=== PATIENT | male | born 1945 | race Caucasian/White ===

== ENCOUNTER 2017-12-29 13:07 | Inpatient (IN) | payer MEDICARE, MEDICAID ==
[~2017-12-29] VITALS: Ht 180.3 cm; Wt 56.0 kg
[2017-12-29] MEDS ORDERED: ipratropium/albuterol 3ml nebule NEB ONE (13:50)
[2017-12-29 14:22] LABS: BASOPHILS % (AUTO) 0.2 % (0-1); EOSINOPHILS # (AUTO) 0.2 X10'3 (0-0.9); EOSINOPHILS % (AUTO) 1.7 % (0-6); HEMATOCRIT 48.4 % (42.0-52.0); HEMOGLOBIN 15.6 g/dl (14.0-17.9); LYMPHOCYTES # (AUTO) 1.6 X10'3 (1.1-4.8); LYMPHOCYTES % (AUTO) 10.7 % (21-51); MEAN CORPUSCULAR HEMOGLOBIN 27.2 PG (27.0-31.0); MEAN CORPUSCULAR HGB CONC 32.2 % (33.0-36.5); MEAN CORPUSCULAR VOLUME 84.5 FL (78-98); MEAN PLATELET VOLUME 8.3 FL (7.4-10.4); MONOCYTES # (AUTO) 0.5 X10'3 (0-0.9); MONOCYTES % (AUTO) 3.5 % (2-12); NEUTROPHILS # (AUTO) 12.3 X10'3 (1.8-7.7); NEUTROPHILS % (AUTO) 83.9 % (42-75); PLATELET COUNT 796 X10'3 (140-440); RED BLOOD COUNT 5.73 X10'6 (4.70-6.10); RED CELL DISTRIBUTION WIDTH 15.4 % (11.5-14.5); WHITE BLOOD COUNT 14.6 X10'3 (4.5-11.0)
[2017-12-29 14:32] LABS: INR 1.1 INR; PARTIAL THROMBOPLASTIN TIME 33 SECONDS (22-32); PROTHROMBIN TIME 11.2 SECONDS (9.0-12.0)
[2017-12-29 14:35] LABS: ALANINE AMINOTRANSFERASE 34 U/L (12-78); ALBUMIN 3.8 G/DL (3.4-5.0); ALBUMIN/GLOBULIN RATIO 0.7 (1.1-1.5); ALKALINE PHOSPHATASE 160 IU/L (46-116); ANION GAP 11 (8-16); ASPARTATE AMINO TRANSFERASE 26 U/L (10-37); BILIRUBIN,TOTAL 0.6 MG/DL (0.1-1.0); BLOOD UREA NITROGEN 11 MG/DL (7-18); BUN/CREATININE RATIO 10.9 (5.4-32.0); CALCIUM 9.9 MG/DL (8.5-10.1); CHLORIDE 97 MMOL/L (99-107); CREATININE 1.01 MG/DL (0.60-1.10); GLUCOSE 145 MG/DL (70-104); POTASSIUM 4.6 MMOL/L (3.5-5.1); SODIUM 136 MMOL/L (135-145); TOTAL CARBON DIOXIDE 28.1 MMOL/L (24-32); TOTAL PROTEIN 9.1 G/DL (6.4-8.2); eGFR 72 ML/MIN
[2017-12-29] MEDS ORDERED: normal saline 1000ML IV soln IVB ONE ×2 (14:55→15:45)
[2017-12-29] MEDS ORDERED: predniSONE 20 mg tablet PO ONE (15:30)
[2017-12-29] MEDS ORDERED: levoFLOXACIN 250mg tablet PO ONE (15:30)
[2017-12-29 16:08] LABS: D-DIMER 1.85 MG/L FEU (0-0.50)
[2017-12-29] MEDS ORDERED: docusate sod 100mg capsule PO PRN (16:15)
[2017-12-29] MEDS ORDERED: potassium Cl 40MEQ/NS 500ml 500 ML IV PRN ×2 (16:15)
[2017-12-29] MEDS ORDERED: magnesium 2GM in 50ml NS 50 ML IV PRN (16:15)
[2017-12-29] MEDS: normal saline 1000ml 1,000 ML IV SCH ×2 (16:15→21:43)
[2017-12-29] MEDS ORDERED: magnesium 4gm in 100ml NS 100 ML IV PRN (16:15)
[2017-12-29] MEDS ORDERED: morphine 4 MG/ML inj SYRINge IV PRN (16:15)
[2017-12-29] MEDS ORDERED: acetaminophen 325mg tablet PO PRN (16:15)
[2017-12-29] MEDS ORDERED: magnesium hydroxide 30ml (MOM) UD suspension PO PRN (16:15)
[2017-12-29] MEDS ORDERED: ondansetron/PF 4mg/2ml inj IV PRN (16:15)
[2017-12-29] MEDS ORDERED: potassium Cl 20 mEq SR tablet PO PRN ×2 (16:15)
[2017-12-29] MEDS ORDERED: iohexol 350MG/ML 100ml bottle IV ONE (17:30)
[2017-12-29] MEDS ORDERED: heparin 10,000 units/1 ML INJ IV ONE (18:35)
[2017-12-29] MEDS ORDERED: heparin 10,000 units/1 ML INJ IV PRN (18:35)
[2017-12-29] MEDS ORDERED: nitroGLYCERIN-Tridil 50MG/D5W 250 ML IV SCH (18:35)
[2017-12-29] MEDS ORDERED: LIDOcaine 1.5% w/epinephrine 1:200,000 5ml ampul IJ ONE (19:20)
[2017-12-29] MEDS ORDERED: fentaNYL/PF 50MCG/1 ML 2ML syringe IV ONE (19:20)
[2017-12-29] MEDS ORDERED: LORazepam 2 mg/ml vial IV ONE (19:30)
[2017-12-29 21:30] VITALS: BP 115/81
[2017-12-29] MEDS ORDERED: TRAM50TA2 (21:39)
[2017-12-29] MEDS ORDERED: CARI-1 (21:39)
[2017-12-29] MEDS: morphine 4 MG/ML inj SYRINge IV PRN (21:44)
[2017-12-29 23:00] VITALS: BP 134/73
[2017-12-30 01:44] LABS: ALANINE AMINOTRANSFERASE 31 U/L (12-78); ALBUMIN 2.8 G/DL (3.4-5.0); ALBUMIN/GLOBULIN RATIO 0.7 (1.1-1.5); ALKALINE PHOSPHATASE 114 IU/L (46-116); ANION GAP 9 (8-16); ASPARTATE AMINO TRANSFERASE 25 U/L (10-37); BILIRUBIN,TOTAL 0.5 MG/DL (0.1-1.0); BLOOD UREA NITROGEN 9 MG/DL (7-18); BUN/CREATININE RATIO 11.4 (5.4-32.0); CALCIUM 8.3 MG/DL (8.5-10.1); CHLORIDE 102 MMOL/L (99-107); CREATININE 0.79 MG/DL (0.60-1.10); GLUCOSE 122 MG/DL (70-104); POTASSIUM 4.3 MMOL/L (3.5-5.1); SODIUM 138 MMOL/L (135-145); TOTAL CARBON DIOXIDE 27.3 MMOL/L (24-32); TOTAL PROTEIN 6.9 G/DL (6.4-8.2); eGFR > 90 ML/MIN
[2017-12-30 01:46] LABS: HDL CHOLESTEROL 52 MG/DL (35-60); LDL CHOLESTEROL 115 MG/DL (50-100); MAGNESIUM 1.6 MG/DL (1.5-2.4); TRIGLYCERIDES 60 MG/DL (20-135)
[2017-12-30 01:54] LABS: CHOL/HDL RATIO 3.5 (0.00-4.99); CHOLESTEROL 180 MG/DL (0-200)
[2017-12-30 02:10] LABS: BASOPHILS % (AUTO) 0.2 % (0-1); EOSINOPHILS # (AUTO) 0.1 X10'3 (0-0.9); EOSINOPHILS % (AUTO) 0.7 % (0-6); HEMATOCRIT 39.4 % (42.0-52.0); LYMPHOCYTES % (AUTO) 7.2 % (21-51); MEAN CORPUSCULAR HEMOGLOBIN 27.8 PG (27.0-31.0); MEAN CORPUSCULAR VOLUME 84.1 FL (78-98); MEAN PLATELET VOLUME 8.6 FL (7.4-10.4); MONOCYTES # (AUTO) 0.6 X10'3 (0-0.9); MONOCYTES % (AUTO) 4.9 % (2-12); NEUTROPHILS # (AUTO) 11.4 X10'3 (1.8-7.7); PLATELET COUNT 614 X10'3 (140-440); RED BLOOD COUNT 4.68 X10'6 (4.70-6.10); WHITE BLOOD COUNT 13.2 X10'3 (4.5-11.0)
[2017-12-30] MEDS: morphine 4 MG/ML inj SYRINge IV PRN ×5 (02:54→23:08)
[2017-12-30 03:00] VITALS: BP 124/65
[2017-12-30 07:00] VITALS: BP 137/82
[2017-12-30] MEDS: K and/or MAG REPLACEMENT MC SCH (07:04)
[2017-12-30] MEDS: levoFLOXACIN-Levaquin 750MG/D5 150 ML IV SCH (07:55)
[2017-12-30] MEDS: methylPREDNISolone sod succ 125mg/2ml vial IV SCH ×3 (07:55→21:18)
[2017-12-30] MEDS ORDERED: enoxaparin 40mg/0.4ml syringe SQ SCH (08:00)
[2017-12-30] MEDS: heparin, porcine 5000 units/ml vial SQ SCH ×4 (08:00→23:20)
[2017-12-30 11:00] VITALS: BP 133/73
[2017-12-30] MEDS: normal saline 1000ml 1,000 ML IV SCH ×2 (12:34→19:16)
[2017-12-30 15:00] VITALS: BP 144/76
[2017-12-30 19:00] VITALS: BP 149/77
[2017-12-30] MEDS: lactobacillus rhamnosus 10,000 MMU CELLS/CAPSULE PO SCH (21:18)
[2017-12-30 23:00] VITALS: BP 131/86
[2017-12-31] MEDS: methylPREDNISolone sod succ 125mg/2ml vial IV SCH ×4 (02:59→19:33)
[2017-12-31] MEDS: morphine 4 MG/ML inj SYRINge IV PRN ×5 (02:59→21:19)
[2017-12-31 03:00] VITALS: BP 139/57
[2017-12-31 05:22] LABS: BASOPHILS # (AUTO) 0.1 X10'3 (0-0.2); EOSINOPHILS % (AUTO) 0.5 % (0-6); HEMATOCRIT 38.8 % (42.0-52.0); HEMOGLOBIN 12.8 g/dl (14.0-17.9); LYMPHOCYTES # (AUTO) 0.9 X10'3 (1.1-4.8); LYMPHOCYTES % (AUTO) 12.2 % (21-51); MEAN CORPUSCULAR HEMOGLOBIN 27.6 PG (27.0-31.0); MEAN CORPUSCULAR VOLUME 83.6 FL (78-98); MEAN PLATELET VOLUME 8.7 FL (7.4-10.4); MONOCYTES # (AUTO) 0.4 X10'3 (0-0.9); MONOCYTES % (AUTO) 4.9 % (2-12); NEUTROPHILS # (AUTO) 6.1 X10'3 (1.8-7.7); NEUTROPHILS % (AUTO) 81.4 % (42-75); PLATELET COUNT 539 X10'3 (140-440); RED BLOOD COUNT 4.64 X10'6 (4.70-6.10); WHITE BLOOD COUNT 7.5 X10'3 (4.5-11.0)
[2017-12-31 06:08] LABS: ALANINE AMINOTRANSFERASE 35 U/L (12-78); ALBUMIN 2.7 G/DL (3.4-5.0); ALBUMIN/GLOBULIN RATIO 0.7 (1.1-1.5); ALKALINE PHOSPHATASE 102 IU/L (46-116); ANION GAP 8 (8-16); ASPARTATE AMINO TRANSFERASE 33 U/L (10-37); BILIRUBIN,TOTAL 0.4 MG/DL (0.1-1.0); BLOOD UREA NITROGEN 11 MG/DL (7-18); BUN/CREATININE RATIO 14.9 (5.4-32.0); CALCIUM 8.9 MG/DL (8.5-10.1); CHLORIDE 102 MMOL/L (99-107); CREATININE 0.74 MG/DL (0.60-1.10); GLUCOSE 125 MG/DL (70-104); MAGNESIUM 1.7 MG/DL (1.5-2.4); POTASSIUM 3.9 MMOL/L (3.5-5.1); SODIUM 138 MMOL/L (135-145); TOTAL CARBON DIOXIDE 27.8 MMOL/L (24-32); TOTAL PROTEIN 6.6 G/DL (6.4-8.2); eGFR > 90 ML/MIN
[2017-12-31 07:00] VITALS: BP 122/55
[2017-12-31] MEDS: levoFLOXACIN-Levaquin 750MG/D5 150 ML IV SCH (07:20)
[2017-12-31] MEDS: lactobacillus rhamnosus 10,000 MMU CELLS/CAPSULE PO SCH ×2 (07:20→19:33)
[2017-12-31] MEDS: heparin, porcine 5000 units/ml vial SQ SCH ×2 (07:20→16:39)
[2017-12-31] MEDS: K and/or MAG REPLACEMENT MC SCH (08:00)
[2017-12-31] MEDS: normal saline 1000ml 1,000 ML IV SCH ×2 (08:20→20:00)
[2017-12-31] MEDS: ipratropium/albuterol 3ml nebule NEB PRN (09:08)
[2017-12-31 11:00] VITALS: BP 119/58
[2017-12-31 15:00] VITALS: BP 128/62
[2017-12-31 19:00] VITALS: BP 132/61
[2017-12-31 23:00] VITALS: BP 127/61
[2018-01-01] VITALS (16 sets, daily range): BP systolic 124–161; BP diastolic 47–80
[2018-01-01] MEDS: heparin, porcine 5000 units/ml vial SQ SCH ×3 (00:57→20:30)
[2018-01-01] MEDS: morphine 4 MG/ML inj SYRINge IV PRN ×3 (01:32→18:52)
[2018-01-01] MEDS: methylPREDNISolone sod succ 125mg/2ml vial IV SCH ×4 (01:32→19:50)
[2018-01-01] MEDS: normal saline 1000ml 1,000 ML IV SCH ×2 (04:15→18:26)
[2018-01-01 05:52] LABS: BASOPHILS % (AUTO) 0.3 % (0-1); EOSINOPHILS % (AUTO) 0.2 % (0-6); HEMATOCRIT 38.8 % (42.0-52.0); LYMPHOCYTES # (AUTO) 0.8 X10'3 (1.1-4.8); MEAN CORPUSCULAR HEMOGLOBIN 27.9 PG (27.0-31.0); MEAN CORPUSCULAR HGB CONC 33.6 % (33.0-36.5); MEAN CORPUSCULAR VOLUME 83.2 FL (78-98); MEAN PLATELET VOLUME 9.1 FL (7.4-10.4); MONOCYTES # (AUTO) 0.3 X10'3 (0-0.9); MONOCYTES % (AUTO) 2.3 % (2-12); NEUTROPHILS % (AUTO) 91.2 % (42-75); PLATELET COUNT 517 X10'3 (140-440); RED BLOOD COUNT 4.66 X10'6 (4.70-6.10); RED CELL DISTRIBUTION WIDTH 14.9 % (11.5-14.5); WHITE BLOOD COUNT 13.1 X10'3 (4.5-11.0)
[2018-01-01 06:18] LABS: ALANINE AMINOTRANSFERASE 54 U/L (12-78); ALBUMIN 2.7 G/DL (3.4-5.0); ALBUMIN/GLOBULIN RATIO 0.7 (1.1-1.5); ALKALINE PHOSPHATASE 95 IU/L (46-116); ANION GAP 6 (8-16); ASPARTATE AMINO TRANSFERASE 38 U/L (10-37); BILIRUBIN,TOTAL 0.4 MG/DL (0.1-1.0); BLOOD UREA NITROGEN 13 MG/DL (7-18); BUN/CREATININE RATIO 19.7 (5.4-32.0); CALCIUM 8.8 MG/DL (8.5-10.1); CHLORIDE 103 MMOL/L (99-107); CREATININE 0.66 MG/DL (0.60-1.10); GLUCOSE 114 MG/DL (70-104); MAGNESIUM 1.7 MG/DL (1.5-2.4); POTASSIUM 3.6 MMOL/L (3.5-5.1); SODIUM 139 MMOL/L (135-145); TOTAL CARBON DIOXIDE 29.8 MMOL/L (24-32); TOTAL PROTEIN 6.4 G/DL (6.4-8.2); eGFR > 90 ML/MIN
[2018-01-01] MEDS: ipratropium/albuterol 3ml nebule NEB PRN ×2 (07:00→11:09)
[2018-01-01] MEDS: lactobacillus rhamnosus 10,000 MMU CELLS/CAPSULE PO SCH ×2 (08:00→19:51)
[2018-01-01] MEDS: K and/or MAG REPLACEMENT MC SCH (08:00)
[2018-01-01] MEDS: levoFLOXACIN-Levaquin 750MG/D5 150 ML IV SCH (09:43)
[2018-01-01 10:07] LABS: INR 1.1 INR; PROTHROMBIN TIME 11.7 SECONDS (9.0-12.0)
[2018-01-01] MEDS ORDERED: ondansetron/PF 4mg/2ml inj ONE (13:37)
[2018-01-01] MEDS ORDERED: sevoflurane 250ml liquid IH ONE (13:37)
[2018-01-01] MEDS ORDERED: fentaNYL/PF 50MCG/1 ML 2ML syringe ONE (13:53)
[2018-01-01] MEDS ORDERED: midazolam 2 mg/2 ml injection ONE (13:53)
[2018-01-01] MEDS ORDERED: morphine sulfate /PF 0.5 MG/ML 10mL ampul ONE (14:23)
[2018-01-01] MEDS ORDERED: BUPIVAcaine/PF 2.5mg/ml (0.25%) 10ml vial ONE (14:29)
[2018-01-01] MEDS ORDERED: BUPIVAcaine/PF 2.5mg/ml (0.25%) 10ml vial IJ ONE (14:30)
[2018-01-01] MEDS ORDERED: metoprolol tartrate 1mg/ml inj IV ONE (14:42)
[2018-01-01] MEDS ORDERED: ringers solution, lacted 1,000 ML IV ONE (14:58)
[2018-01-01] MEDS ORDERED: ondansetron/PF 4mg/2ml inj IV PRN (15:00)
[2018-01-01] MEDS ORDERED: proMETHazine 25mg rectal suppository RC PRN (15:00)
[2018-01-01] MEDS ORDERED: HYDROmorphone inj. 0.5 MG/0.5 ML DISP.SYRIN IV PRN ×2 (15:00)
[2018-01-01] MEDS ORDERED: fentaNYL/PF 50MCG/1 ML 2ML syringe IV PRN (15:00)
[2018-01-01] MEDS ORDERED: hydrALAZINE 20mg/ml inj. IV PRN (15:00)
[2018-01-01] MEDS ORDERED: meperidine/PF 25mg/ml syringe IV PRN (15:00)
[2018-01-01] MEDS ORDERED: proCHLORperazine 10 MG/2 ml inj IV PRN (15:00)
[2018-01-01] MEDS ORDERED: labetalol 20mg/4ml (5mg/ml) syringe IV PRN (15:00)
[2018-01-01] MEDS ORDERED: dexamethasone sod phosphate 4mg/ml inj. ONE (15:14)
[2018-01-01] MEDS ORDERED: LIDOcaine 2% (20mg/ml) 5ml vial ONE (15:14)
[2018-01-01] MEDS ORDERED: rocuronium 10mg/ml inj IV ONE (15:14)
[2018-01-01] MEDS ORDERED: glycopyrrolate 0.2mg/ml inj ONE (15:14)
[2018-01-01] MEDS ORDERED: phenylephrine 10mg/ml inj IV ONE (15:14)
[2018-01-01] MEDS ORDERED: neostigmine methylsulfate 1 MG/ML 10ml vial ONE (15:14)
[2018-01-01] MEDS ORDERED: propofol inj 20 ML IV ONE (15:14)
[2018-01-01] MEDS: fentaNYL/PF 50MCG/1 ML 2ML syringe IV PRN ×4 (15:53→16:46)
[2018-01-01] MEDS ORDERED: ceFAZolin inj. 1,000 MG in dextrose 5%-water 50ml 50 ML IV SCH (16:00)
[2018-01-01 16:46] LABS: ABG BASE EXCESS 1.3 mmol/L (-2.0-3.0); ABG HCO3 27.3 mmol/L (22.0-26.0); ABG OXYGEN SATURATION 95.6 % (95-98); ABG PH (T) 7.364 (7.350-7.450); ABG PO2 (T) 83.7 mmHg (83-108); FCOHb 0.2 % (0.5-1.5); FLOW 3 L/min; FMetHb 0.3 % (0.3-1.12); FO2Hb 95.1 % (94-100); RESPIRATORY RATE (OBSERVED) 16 b/min; TOTAL HEMOGLOBIN 13.4 G/dl (14.0-18.0)
[2018-01-01] MEDS: ceFAZolin 1GM/D5W- ADD-VANTAGE 50 ML IV SCH (18:55)
[2018-01-01] MEDS: potassium CL 20mEq in D5-1/2NS 1,000 ML IV SCH ×2 (19:46→23:37)
[2018-01-01] MEDS: HYDROcodone/acetaminophen 10/325mg tab PO PRN (19:51)
[2018-01-02] VITALS (20 sets, daily range): BP systolic 103–149; BP diastolic 49–96
[2018-01-02] MEDS: normal saline 1000ml 1,000 ML IV SCH ×2 (00:15→10:15)
[2018-01-02] MEDS: ceFAZolin 1GM/D5W- ADD-VANTAGE 50 ML IV SCH ×2 (00:42→08:01)
[2018-01-02] MEDS: HYDROcodone/acetaminophen 10/325mg tab PO PRN ×6 (00:42→23:01)
[2018-01-02] MEDS: methylPREDNISolone sod succ 125mg/2ml vial IV SCH ×4 (02:43→20:20)
[2018-01-02 04:32] LABS: BASOPHILS % (AUTO) 0 % (0-1); EOSINOPHILS % (AUTO) 0 % (0-6); HEMOGLOBIN 11.6 g/dl (14.0-17.9); LYMPHOCYTES # (AUTO) 0.4 X10'3 (1.1-4.8); LYMPHOCYTES % (AUTO) 2.4 % (21-51); MEAN CORPUSCULAR HEMOGLOBIN 27.4 PG (27.0-31.0); MEAN CORPUSCULAR HGB CONC 32.2 % (33.0-36.5); MEAN CORPUSCULAR VOLUME 85.2 FL (78-98); MEAN PLATELET VOLUME 8.3 FL (7.4-10.4); NEUTROPHILS # (AUTO) 15.2 X10'3 (1.8-7.7); NEUTROPHILS % (AUTO) 91.6 % (42-75); PLATELET COUNT 463 X10'3 (140-440); RED BLOOD COUNT 4.23 X10'6 (4.70-6.10); WHITE BLOOD COUNT 16.6 X10'3 (4.5-11.0)
[2018-01-02 04:47] LABS: ALANINE AMINOTRANSFERASE 39 U/L (12-78); ALBUMIN 2.2 G/DL (3.4-5.0); ALBUMIN/GLOBULIN RATIO 0.7 (1.1-1.5); ALKALINE PHOSPHATASE 79 IU/L (46-116); ANION GAP 3 (8-16); ASPARTATE AMINO TRANSFERASE 25 U/L (10-37); BILIRUBIN,TOTAL 0.3 MG/DL (0.1-1.0); BLOOD UREA NITROGEN 9 MG/DL (7-18); BUN/CREATININE RATIO 14.1 (5.4-32.0); CALCIUM 7.8 MG/DL (8.5-10.1); CHLORIDE 102 MMOL/L (99-107); CREATININE 0.64 MG/DL (0.60-1.10); GLUCOSE 178 MG/DL (70-104); MAGNESIUM 1.7 MG/DL (1.5-2.4); POTASSIUM 3.8 MMOL/L (3.5-5.1); SODIUM 136 MMOL/L (135-145); TOTAL CARBON DIOXIDE 31.2 MMOL/L (24-32); TOTAL PROTEIN 5.2 G/DL (6.4-8.2); eGFR > 90 ML/MIN
[2018-01-02] MEDS: potassium CL 20mEq in D5-1/2NS 1,000 ML IV SCH (05:28)
[2018-01-02] MEDS: heparin, porcine 5000 units/ml vial SQ SCH ×4 (08:01→23:03)
[2018-01-02] MEDS: lactobacillus rhamnosus 10,000 MMU CELLS/CAPSULE PO SCH ×2 (08:01→20:20)
[2018-01-02] MEDS: K and/or MAG REPLACEMENT MC SCH (08:19)
[2018-01-02] MEDS: levoFLOXACIN-Levaquin 750MG/D5 150 ML IV SCH (08:52)
[2018-01-03 02:00] VITALS: BP 120/69
[2018-01-03] MEDS: methylPREDNISolone sod succ 125mg/2ml vial IV SCH ×4 (02:21→19:38)
[2018-01-03 05:34] LABS: BASOPHILS % (AUTO) 0.2 % (0-1); EOSINOPHILS # (AUTO) 0.1 X10'3 (0-0.9); EOSINOPHILS % (AUTO) 0.6 % (0-6); HEMATOCRIT 37.1 % (42.0-52.0); HEMOGLOBIN 12.5 g/dl (14.0-17.9); LYMPHOCYTES # (AUTO) 0.6 X10'3 (1.1-4.8); LYMPHOCYTES % (AUTO) 3.7 % (21-51); MEAN CORPUSCULAR HEMOGLOBIN 28.3 PG (27.0-31.0); MEAN CORPUSCULAR HGB CONC 33.7 % (33.0-36.5); MEAN CORPUSCULAR VOLUME 84.1 FL (78-98); MEAN PLATELET VOLUME 9.3 FL (7.4-10.4); MONOCYTES % (AUTO) 6.1 % (2-12); NEUTROPHILS # (AUTO) 14.9 X10'3 (1.8-7.7); NEUTROPHILS % (AUTO) 89.4 % (42-75); PLATELET COUNT 380 X10'3 (140-440); RED BLOOD COUNT 4.41 X10'6 (4.70-6.10); RED CELL DISTRIBUTION WIDTH 15.1 % (11.5-14.5); WHITE BLOOD COUNT 16.6 X10'3 (4.5-11.0)
[2018-01-03 05:45] LABS: ALANINE AMINOTRANSFERASE 45 U/L (12-78); ALBUMIN 2.3 G/DL (3.4-5.0); ALBUMIN/GLOBULIN RATIO 0.7 (1.1-1.5); ALKALINE PHOSPHATASE 80 IU/L (46-116); ANION GAP 4 (8-16); ASPARTATE AMINO TRANSFERASE 26 U/L (10-37); BILIRUBIN,TOTAL 0.6 MG/DL (0.1-1.0); BLOOD UREA NITROGEN 12 MG/DL (7-18); BUN/CREATININE RATIO 17.4 (5.4-32.0); CALCIUM 8.1 MG/DL (8.5-10.1); CHLORIDE 101 MMOL/L (99-107); CREATININE 0.69 MG/DL (0.60-1.10); GLUCOSE 113 MG/DL (70-104); MAGNESIUM 1.8 MG/DL (1.5-2.4); POTASSIUM 3.7 MMOL/L (3.5-5.1); SODIUM 137 MMOL/L (135-145); TOTAL CARBON DIOXIDE 32.5 MMOL/L (24-32); TOTAL PROTEIN 5.5 G/DL (6.4-8.2); eGFR > 90 ML/MIN
[2018-01-03 06:00] VITALS: BP 141/68
[2018-01-03] MEDS: HYDROcodone/acetaminophen 10/325mg tab PO PRN ×4 (07:22→19:38)
[2018-01-03] MEDS: lactobacillus rhamnosus 10,000 MMU CELLS/CAPSULE PO SCH ×2 (07:22→19:38)
[2018-01-03] MEDS: levoFLOXACIN-Levaquin 750MG/D5 150 ML IV SCH (07:22)
[2018-01-03] MEDS: heparin, porcine 5000 units/ml vial SQ SCH ×2 (07:32→15:29)
[2018-01-03] MEDS: K and/or MAG REPLACEMENT MC SCH (08:00)
[2018-01-03 11:00] VITALS: BP 110/71
[2018-01-03] MEDS ORDERED: mag hydrox/Alum hydrox/simeth 30ml oral suspension PO PRN (12:00)
[2018-01-03] MEDS: potassium CL 20mEq in D5-1/2NS 1,000 ML IV SCH (12:53)
[2018-01-03 15:00] VITALS: BP 156/71
[2018-01-03 18:00] VITALS: BP 116/71
[2018-01-03 22:00] VITALS: BP 146/76
[2018-01-04] MEDS: HYDROcodone/acetaminophen 10/325mg tab PO PRN ×5 (00:02→20:29)
[2018-01-04 02:00] VITALS: BP 160/72
[2018-01-04] MEDS: methylPREDNISolone sod succ 125mg/2ml vial IV SCH ×4 (02:06→19:44)
[2018-01-04 06:00] VITALS: BP 145/87
[2018-01-04] MEDS: lactobacillus rhamnosus 10,000 MMU CELLS/CAPSULE PO SCH ×2 (07:57→19:44)
[2018-01-04] MEDS: pantoprazole 40mg Tablet.DR PO SCH (07:58)
[2018-01-04] MEDS: K and/or MAG REPLACEMENT MC SCH (08:00)
[2018-01-04] MEDS: levoFLOXACIN-Levaquin 750MG/D5 150 ML IV SCH (08:01)
[2018-01-04] MEDS: enoxaparin 40mg/0.4ml syringe SUBCUT SCH (08:03)
[2018-01-04 11:00] VITALS: BP 139/76
[2018-01-04 15:00] VITALS: BP 121/78
[2018-01-04 18:00] VITALS: BP 143/72
[2018-01-04 22:00] VITALS: BP 149/82
[2018-01-05] MEDS: HYDROcodone/acetaminophen 10/325mg tab PO PRN ×6 (00:28→21:32)
[2018-01-05] MEDS: methylPREDNISolone sod succ 125mg/2ml vial IV SCH ×4 (01:44→20:18)
[2018-01-05 02:00] VITALS: BP 157/75
[2018-01-05 05:41] LABS: MAGNESIUM 1.7 MG/DL (1.5-2.4)
[2018-01-05 06:00] VITALS: BP 158/75
[2018-01-05 06:52] LABS: ALBUMIN 2.3 G/DL (3.4-5.0); ANION GAP 8 (8-16); BLOOD UREA NITROGEN 16 MG/DL (7-18); BUN/CREATININE RATIO 23.5 (5.4-32.0); CALCIUM 8.3 MG/DL (8.5-10.1); CHLORIDE 102 MMOL/L (99-107); CREATININE 0.68 MG/DL (0.60-1.10); GLUCOSE 113 MG/DL (70-104); POTASSIUM 3.9 MMOL/L (3.5-5.1); SODIUM 139 MMOL/L (135-145); TOTAL CARBON DIOXIDE 29.3 MMOL/L (24-32); eGFR > 90 ML/MIN
[2018-01-05] MEDS: lactobacillus rhamnosus 10,000 MMU CELLS/CAPSULE PO SCH ×2 (07:48→20:18)
[2018-01-05] MEDS: pantoprazole 40mg Tablet.DR PO SCH (07:48)
[2018-01-05] MEDS: enoxaparin 40mg/0.4ml syringe SUBCUT SCH (07:49)
[2018-01-05] MEDS: K and/or MAG REPLACEMENT MC SCH (08:00)
[2018-01-05] MEDS: levoFLOXACIN-Levaquin 750MG/D5 150 ML IV SCH (08:12)
[2018-01-05 09:00] LABS: BASOPHILS % (AUTO) 0.6 % (0-1); EOSINOPHILS # (AUTO) 0.1 X10'3 (0-0.9); EOSINOPHILS % (AUTO) 1.3 % (0-6); HEMOGLOBIN 12.6 g/dl (14.0-17.9); LYMPHOCYTES # (AUTO) 0.5 X10'3 (1.1-4.8); MEAN CORPUSCULAR HEMOGLOBIN 27.9 PG (27.0-31.0); MEAN CORPUSCULAR HGB CONC 33.2 % (33.0-36.5); MEAN PLATELET VOLUME 8.9 FL (7.4-10.4); MONOCYTES # (AUTO) 0.2 X10'3 (0-0.9); MONOCYTES % (AUTO) 2.8 % (2-12); NEUTROPHILS # (AUTO) 6.7 X10'3 (1.8-7.7); NEUTROPHILS % (AUTO) 88.3 % (42-75); PLATELET COUNT 355 X10'3 (140-440); RED BLOOD COUNT 4.52 X10'6 (4.70-6.10); RED CELL DISTRIBUTION WIDTH 14.5 % (11.5-14.5); WHITE BLOOD COUNT 7.6 X10'3 (4.5-11.0)
[2018-01-05 11:00] VITALS: BP 143/79
[2018-01-05 15:00] VITALS: BP 148/66
[2018-01-05 19:00] VITALS: BP 114/72
[2018-01-05 20:24] LABS: CLARITY,URINE CLEAR (Clear); COLOR,URINE YELLOW (Yellow); GLUCOSE, URINE NEGATIVE (Neg); KETONES,URINE NEGATIVE (Neg); LEUKOCYTE ESTERASE ,URINE NEGATIVE (Neg); NITRITES, URINE NEGATIVE (Neg); OCCULT BLOOD,URINE SMALL (Neg); PH,URINE 6.5 (4.8-8.0); PROTEIN,URINE NEGATIVE (Neg); UA COLLECTION TYPE CLN CATCH MIDSTREAM; UROBILINOGEN,URINE 0.2 E.U/dL (0.2-1.0)
[2018-01-05 20:30] LABS: BACTERIA,URINE NONE SEEN /HPF (Neg); MUCUS STRANDS NONE SEEN /LPF (Neg); RBC,URINE 0-2 /HPF (0-2); SQUAMOUS EPITHELIAL CELL,UR FEW /LPF (FEW); WBC,URINE 0-4 /HPF (0-4)
[2018-01-05 23:00] VITALS: BP 158/72
[2018-01-06] MEDS: HYDROcodone/acetaminophen 10/325mg tab PO PRN ×5 (01:43→21:08)
[2018-01-06] MEDS: methylPREDNISolone sod succ 125mg/2ml vial IV SCH ×4 (01:43→20:16)
[2018-01-06 03:00] VITALS: BP 142/73
[2018-01-06 05:41] LABS: BASOPHILS % (AUTO) 0 % (0-1); EOSINOPHILS # (AUTO) 0.1 X10'3 (0-0.9); HEMATOCRIT 36.4 % (42.0-52.0); LYMPHOCYTES # (AUTO) 0.5 X10'3 (1.1-4.8); LYMPHOCYTES % (AUTO) 4.4 % (21-51); MEAN CORPUSCULAR HEMOGLOBIN 27.8 PG (27.0-31.0); MEAN CORPUSCULAR HGB CONC 33.1 % (33.0-36.5); MEAN PLATELET VOLUME 9.1 FL (7.4-10.4); MONOCYTES # (AUTO) 0.3 X10'3 (0-0.9); NEUTROPHILS # (AUTO) 10.5 X10'3 (1.8-7.7); NEUTROPHILS % (AUTO) 91.6 % (42-75); PLATELET COUNT 360 X10'3 (140-440); RED BLOOD COUNT 4.33 X10'6 (4.70-6.10); RED CELL DISTRIBUTION WIDTH 14.9 % (11.5-14.5); WHITE BLOOD COUNT 11.5 X10'3 (4.5-11.0)
[2018-01-06 05:54] LABS: ALBUMIN 2.3 G/DL (3.4-5.0); ANION GAP 3 (8-16); BLOOD UREA NITROGEN 16 MG/DL (7-18); BUN/CREATININE RATIO 22.9 (5.4-32.0); CALCIUM 8.1 MG/DL (8.5-10.1); CHLORIDE 100 MMOL/L (99-107); GLUCOSE 117 MG/DL (70-104); POTASSIUM 3.6 MMOL/L (3.5-5.1); SODIUM 135 MMOL/L (135-145); TOTAL CARBON DIOXIDE 31.7 MMOL/L (24-32); eGFR > 90 ML/MIN
[2018-01-06 06:49] VITALS: BP 153/77
[2018-01-06] MEDS: lactobacillus rhamnosus 10,000 MMU CELLS/CAPSULE PO SCH ×2 (07:08→20:16)
[2018-01-06] MEDS: enoxaparin 40mg/0.4ml syringe SUBCUT SCH (07:09)
[2018-01-06] MEDS: pantoprazole 40mg Tablet.DR PO SCH (07:09)
[2018-01-06] MEDS: levoFLOXACIN-Levaquin 750MG/D5 150 ML IV SCH (07:10)
[2018-01-06] MEDS: K and/or MAG REPLACEMENT MC SCH (08:00)
[2018-01-06 11:00] VITALS: BP 129/72
[2018-01-06 15:00] VITALS: BP 145/68
[2018-01-06 19:00] VITALS: BP 134/69
[2018-01-06 23:00] VITALS: BP 159/83
[2018-01-07] MEDS: HYDROcodone/acetaminophen 10/325mg tab PO PRN ×6 (02:19→23:08)
[2018-01-07] MEDS: methylPREDNISolone sod succ 125mg/2ml vial IV SCH ×4 (02:19→19:41)
[2018-01-07 03:00] VITALS: BP 140/71
[2018-01-07 05:16] LABS: BASOPHILS % (AUTO) 0.2 % (0-1); EOSINOPHILS # (AUTO) 0.1 X10'3 (0-0.9); EOSINOPHILS % (AUTO) 1.3 % (0-6); HEMATOCRIT 36.8 % (42.0-52.0); HEMOGLOBIN 12.1 g/dl (14.0-17.9); LYMPHOCYTES # (AUTO) 0.5 X10'3 (1.1-4.8); MEAN CORPUSCULAR HEMOGLOBIN 27.5 PG (27.0-31.0); MEAN CORPUSCULAR HGB CONC 32.8 % (33.0-36.5); MEAN CORPUSCULAR VOLUME 83.9 FL (78-98); MONOCYTES # (AUTO) 0.4 X10'3 (0-0.9); MONOCYTES % (AUTO) 4.7 % (2-12); NEUTROPHILS # (AUTO) 7.9 X10'3 (1.8-7.7); NEUTROPHILS % (AUTO) 87.8 % (42-75); PLATELET COUNT 338 X10'3 (140-440); RED BLOOD COUNT 4.38 X10'6 (4.70-6.10); RED CELL DISTRIBUTION WIDTH 15.1 % (11.5-14.5)
[2018-01-07 05:24] LABS: ALBUMIN 2.2 G/DL (3.4-5.0); ANION GAP 2 (8-16); BLOOD UREA NITROGEN 17 MG/DL (7-18); BUN/CREATININE RATIO 23.9 (5.4-32.0); CALCIUM 8.2 MG/DL (8.5-10.1); CHLORIDE 102 MMOL/L (99-107); CREATININE 0.71 MG/DL (0.60-1.10); GLUCOSE 116 MG/DL (70-104); POTASSIUM 3.7 MMOL/L (3.5-5.1); SODIUM 138 MMOL/L (135-145); TOTAL CARBON DIOXIDE 33.6 MMOL/L (24-32); eGFR > 90 ML/MIN
[2018-01-07] MEDS: K and/or MAG REPLACEMENT MC SCH (06:29)
[2018-01-07 06:51] VITALS: BP 136/80
[2018-01-07] MEDS: pantoprazole 40mg Tablet.DR PO SCH (07:34)
[2018-01-07] MEDS: enoxaparin 40mg/0.4ml syringe SUBCUT SCH (07:34)
[2018-01-07] MEDS: levoFLOXACIN-Levaquin 750MG/D5 150 ML IV SCH (07:34)
[2018-01-07] MEDS: lactobacillus rhamnosus 10,000 MMU CELLS/CAPSULE PO SCH ×2 (07:34→19:41)
[2018-01-07 11:31] VITALS: BP 142/67
[2018-01-07 16:00] VITALS: BP 151/63
[2018-01-07 19:00] VITALS: BP 155/73
[2018-01-07 23:00] VITALS: BP 159/80
[2018-01-08] MEDS: methylPREDNISolone sod succ 125mg/2ml vial IV SCH ×4 (01:51→19:53)
[2018-01-08 03:00] VITALS: BP 158/65
[2018-01-08] MEDS: HYDROcodone/acetaminophen 10/325mg tab PO PRN ×5 (03:13→21:51)
[2018-01-08 06:30] VITALS: BP 149/76
[2018-01-08] MEDS: K and/or MAG REPLACEMENT MC SCH (08:00)
[2018-01-08] MEDS: pantoprazole 40mg Tablet.DR PO SCH (08:40)
[2018-01-08] MEDS: lactobacillus rhamnosus 10,000 MMU CELLS/CAPSULE PO SCH ×2 (08:40→19:53)
[2018-01-08] MEDS: enoxaparin 40mg/0.4ml syringe SUBCUT SCH (08:41)
[2018-01-08 11:00] VITALS: BP 155/60
[2018-01-08 15:00] VITALS: BP 150/72
[2018-01-08 19:00] VITALS: BP 151/59
[2018-01-08 23:00] VITALS: BP 150/79
[2018-01-09] MEDS: methylPREDNISolone sod succ 125mg/2ml vial IV SCH ×4 (01:44→20:44)
[2018-01-09] MEDS: MORPHINE 2MG in 2ml NS syringe IV PRN ×2 (01:52→13:50)
[2018-01-09 03:00] VITALS: BP 127/65
[2018-01-09 05:21] LABS: BASOPHILS % (AUTO) 0 % (0-1); EOSINOPHILS # (AUTO) 0.1 X10'3 (0-0.9); EOSINOPHILS % (AUTO) 0.9 % (0-6); HEMATOCRIT 40.2 % (42.0-52.0); HEMOGLOBIN 13.4 g/dl (14.0-17.9); LYMPHOCYTES # (AUTO) 0.6 X10'3 (1.1-4.8); LYMPHOCYTES % (AUTO) 5.3 % (21-51); MEAN CORPUSCULAR HEMOGLOBIN 27.9 PG (27.0-31.0); MEAN CORPUSCULAR HGB CONC 33.3 % (33.0-36.5); MEAN PLATELET VOLUME 8.3 FL (7.4-10.4); MONOCYTES # (AUTO) 0.4 X10'3 (0-0.9); MONOCYTES % (AUTO) 2.9 % (2-12); NEUTROPHILS % (AUTO) 90.9 % (42-75); PLATELET COUNT 363 X10'3 (140-440); RED BLOOD COUNT 4.78 X10'6 (4.70-6.10); RED CELL DISTRIBUTION WIDTH 15.4 % (11.5-14.5); WHITE BLOOD COUNT 12.1 X10'3 (4.5-11.0)
[2018-01-09 05:33] LABS: ALBUMIN 2.4 G/DL (3.4-5.0); ANION GAP 5 (8-16); BLOOD UREA NITROGEN 17 MG/DL (7-18); BUN/CREATININE RATIO 25.4 (5.4-32.0); CALCIUM 8.3 MG/DL (8.5-10.1); CHLORIDE 102 MMOL/L (99-107); CREATININE 0.67 MG/DL (0.60-1.10); GLUCOSE 103 MG/DL (70-104); SODIUM 139 MMOL/L (135-145); TOTAL CARBON DIOXIDE 32.5 MMOL/L (24-32); eGFR > 90 ML/MIN
[2018-01-09 06:30] VITALS: BP 138/69
[2018-01-09] MEDS: pantoprazole 40mg Tablet.DR PO SCH (07:54)
[2018-01-09] MEDS: lactobacillus rhamnosus 10,000 MMU CELLS/CAPSULE PO SCH ×2 (07:54→20:44)
[2018-01-09] MEDS: HYDROcodone/acetaminophen 10/325mg tab PO PRN ×4 (07:55→20:54)
[2018-01-09] MEDS: enoxaparin 40mg/0.4ml syringe SUBCUT SCH (07:57)
[2018-01-09] MEDS: K and/or MAG REPLACEMENT MC SCH (08:00)
[2018-01-09 11:00] VITALS: BP 119/71
[2018-01-09 15:00] VITALS: BP 127/68
[2018-01-09 19:00] VITALS: BP 105/63
[2018-01-09 23:00] VITALS: BP 131/75
[2018-01-10] MEDS: methylPREDNISolone sod succ 125mg/2ml vial IV SCH ×4 (02:05→19:30)
[2018-01-10] MEDS: HYDROcodone/acetaminophen 10/325mg tab PO PRN ×5 (02:13→19:30)
[2018-01-10 03:00] VITALS: BP 130/68
[2018-01-10 05:30] VITALS: BP 140/71
[2018-01-10] MEDS: enoxaparin 40mg/0.4ml syringe SUBCUT SCH (08:00)
[2018-01-10] MEDS: K and/or MAG REPLACEMENT MC SCH (08:00)
[2018-01-10] MEDS: lactobacillus rhamnosus 10,000 MMU CELLS/CAPSULE PO SCH ×2 (08:20→19:29)
[2018-01-10] MEDS: pantoprazole 40mg Tablet.DR PO SCH (08:20)
[2018-01-10 11:00] VITALS: BP 122/67
[2018-01-10] MEDS ORDERED: ADV50250 IH (13:55)
[2018-01-10] MEDS ORDERED: PRED10TA23 PO (13:55)
[2018-01-10] MEDS ORDERED: LEVO500T2 PO (13:55)
[2018-01-10] MEDS ORDERED: ALBU8.5H8 IH (13:55)
[2018-01-10 15:00] VITALS: BP 165/74
[2018-01-10 19:00] VITALS: BP 154/76
[2018-01-10 23:00] VITALS: BP 167/78
[2018-01-11] MEDS: HYDROcodone/acetaminophen 10/325mg tab PO PRN ×4 (00:20→13:26)
[2018-01-11] MEDS: methylPREDNISolone sod succ 125mg/2ml vial IV SCH ×3 (01:00→13:39)
[2018-01-11 03:00] VITALS: BP 147/93
[2018-01-11 06:00] VITALS: BP 137/68
[2018-01-11] MEDS: enoxaparin 40mg/0.4ml syringe SUBCUT SCH (08:00)
[2018-01-11] MEDS: K and/or MAG REPLACEMENT MC SCH (08:00)
[2018-01-11] MEDS: pantoprazole 40mg Tablet.DR PO SCH (08:02)
[2018-01-11] MEDS: lactobacillus rhamnosus 10,000 MMU CELLS/CAPSULE PO SCH (08:02)
[2018-01-11 11:00] VITALS: BP 119/68
== END 2018-01-11 13:50 | disposition home or self-care (01) | DRG 163 ==
LOC: ER 13:07 → UNDOADMIN 16:15 → ED HOLD 16:15 → PCU 3S 21:16 → CICU 2S 01-01 16:59 → PCU 3S 01-02 16:55
PROVIDERS: ADMIT Family Medicine; ATTEND Internal Medicine
PROC: B32T1ZZ Computerized Tomography (CT Scan) of Left Pulmonary Artery using Low Osmolar Contrast (ICD-10-PCS; 2017-12-29)
PROC: B3201ZZ Computerized Tomography (CT Scan) of Thoracic Aorta using Low Osmolar Contrast (ICD-10-PCS; 2017-12-29)
PROC: B32S1ZZ Computerized Tomography (CT Scan) of Right Pulmonary Artery using Low Osmolar Contrast (ICD-10-PCS; 2017-12-29)
PROC: 0B5P4ZZ Destruction of Left Pleura, Percutaneous Endoscopic Approach (ICD-10-PCS; 2018-01-01)
PROC: 0W9B30Z Drainage of Left Pleural Cavity with Drainage Device, Percutaneous Approach (ICD-10-PCS; 2018-01-01)
PROC: 0BNG4ZZ Release Left Upper Lung Lobe, Percutaneous Endoscopic Approach (ICD-10-PCS; principal; 2018-01-01 13:37)
PROC: 0BTG4ZZ Resection of Left Upper Lung Lobe, Percutaneous Endoscopic Approach (ICD-10-PCS; 2018-01-02)
DX: J93.83 Other pneumothorax (principal); J96.20 Acute and chronic respiratory failure, unspecified whether with hypoxia or hypercapnia; J94.2 Hemothorax; J43.9 Emphysema, unspecified; D72.829 Elevated white blood cell count, unspecified; G89.29 Other chronic pain; M54.9 Dorsalgia, unspecified; I10 Essential (primary) hypertension; Z99.81 Dependence on supplemental oxygen; Z87.891 Personal history of nicotine dependence; Z90.49 Acquired absence of other specified parts of digestive tract; Z82.3 Family history of stroke; Z82.49 Family history of ischemic heart disease and other diseases of the circulatory system; I25.2 Old myocardial infarction
CPT/HCPCS: 32551; 36415; 36600; 71045; 71250; 71275; 80048; 80053; 80061; 81001; 82803; 83605; 83735; 83880; 84100; 84145; 84484; 85018; 85025; 85379; 85610; 85730; 86885; 86900; 86901; 87070; 88307; 93005; 93306; 94640; 94760; 96360; 96361; 97110; 97116; 97161; 97530; 99285; A6212; A6213; A6223; A6224; A6257; A6258; A6402; A6449; A7000; A7048; C1758; C9250; J0690; J1100; J1644; J1650; J1956; J2001; J2060; J2175; J2250; J2270; J2274; J2370; J2405; J2704; J2710; J2930; J3010; J3490; J7030; J7060; J7120; J7512; Q9967

== ENCOUNTER 2019-07-23 17:39 | Inpatient (IN) | payer MEDICARE, MEDICAID ==
[~2019-07-23] VITALS: Ht 180.3 cm; Wt 55.1 kg
[~2019-07-23 17:39] MED LIST: ALBU8.5H8 IH; CARI-433 PO; TRAM50TA2 PO
[2019-07-23 18:37] LABS: BASOPHILS % (AUTO) 0.1 % (0-1); EOSINOPHILS % (AUTO) 0 % (0-6); HEMATOCRIT 39.7 % (42.0-52.0); HEMOGLOBIN 13.1 g/dl (14.0-17.9); LYMPHOCYTES # (AUTO) 1.3 X10'3 (1.1-4.8); MEAN CORPUSCULAR HEMOGLOBIN 27.3 PG (27.0-31.0); MEAN CORPUSCULAR VOLUME 82.8 FL (78-98); MEAN PLATELET VOLUME 8.2 FL (7.4-10.4); MONOCYTES # (AUTO) 3.1 X10'3 (0-0.9); MONOCYTES % (AUTO) 14.9 % (2-12); NEUTROPHILS # (AUTO) 16.6 X10'3 (1.8-7.7); PLATELET COUNT 502 X10'3 (140-440); RED BLOOD COUNT 4.79 X10'6 (4.70-6.10); RED CELL DISTRIBUTION WIDTH 14.9 % (11.5-14.5)
[2019-07-23] MEDS ORDERED: GABA-532 PO (18:38)
[2019-07-23 18:53] LABS: ALANINE AMINOTRANSFERASE 26 U/L (12-78); ALBUMIN 3.1 G/DL (3.4-5.0); ALBUMIN/GLOBULIN RATIO 0.7 (1.1-1.5); ALKALINE PHOSPHATASE 172 IU/L (46-116); ANION GAP 14 (8-16); ASPARTATE AMINO TRANSFERASE 26 U/L (10-37); BILIRUBIN,TOTAL 0.6 MG/DL (0.1-1.0); BLOOD UREA NITROGEN 10 MG/DL (7-18); BUN/CREATININE RATIO 9.3 (5.4-32.0); CALCIUM 9.2 MG/DL (8.5-10.1); CHLORIDE 91 MMOL/L (99-107); CREATININE 1.08 MG/DL (0.60-1.10); GLUCOSE 124 MG/DL (70-104); POTASSIUM 4.2 MMOL/L (3.5-5.1); SODIUM 131 MMOL/L (135-145); TOTAL CARBON DIOXIDE 26.1 MMOL/L (24-32); TOTAL PROTEIN 7.8 G/DL (6.4-8.2); eGFR 66 ML/MIN
[2019-07-23] MEDS ORDERED: CefTRIAXone 2gm/D5W 50ml 50 ML IV ONE (19:35)
[2019-07-23] MEDS ORDERED: normal saline 1000ML IV soln IV ONE (19:35)
[2019-07-23] MEDS ORDERED: ipratropium/albuterol 3ml nebule NEB ONE (19:35)
[2019-07-23 19:51] LABS: CLARITY,URINE CLEAR (Clear); COLOR,URINE AMBER (Yellow); GLUCOSE, URINE NEGATIVE (Neg); KETONES,URINE 40 mg/dl (Neg); LEUKOCYTE ESTERASE ,URINE NEGATIVE (Neg); NITRITES, URINE NEGATIVE (Neg); OCCULT BLOOD,URINE LARGE (Neg); PROTEIN,URINE 100 mg/dl (Neg)
[2019-07-23 19:53] LABS: UA COLLECTION TYPE CLN CATCH MIDSTREAM
[2019-07-23 19:59] LABS: BACTERIA,URINE FEW /HPF (Neg); MUCUS STRANDS FEW /LPF (Neg); SQUAMOUS EPITHELIAL CELL,UR FEW /LPF (FEW); TRANSITIONAL EPI CELLS,URINE FEW /HPF; WBC,URINE 0-4 /HPF (0-4)
[2019-07-23 20:00] LABS: FINE GRANULAR CAST 0-3 /LPF (NEGATIVE); HYALINE CASTS 0-3 /LPF (NEGATIVE); RENAL CELLS, URINE FEW /HPF
[2019-07-23] MEDS ORDERED: albuterol 2.5 MG/3 ML nebule NEB ONE (20:05)
[2019-07-23 20:47] LABS: BANDS% (MANUAL) 8 % (0-10); LYMPHOCYTES % (MANUAL) 8 % (21-51); MONOCYTES % (MANUAL) 14 % (2-12); NEUTROPHILS % (MANUAL) 73 % (42-75); PLATELET ESTIMATE INCREASED; REACTIVE LYMPHOCYTES % 2 % (0-0); TOTAL CELLS COUNTED 100
[2019-07-23] MEDS ORDERED: iohexol 300mg/ml 100ml inj. ONE (21:22)
[2019-07-23] MEDS ORDERED: acetaminophen 325mg tablet PO PRN ×2 (23:15)
[2019-07-23] MEDS ORDERED: HYDROcodone/acetaminophen 10/325mg tab PO PRN (23:15)
[2019-07-23] MEDS ORDERED: docusate sod 100mg capsule PO PRN (23:15)
[2019-07-23] MEDS ORDERED: magnesium Cl slow-release 64mg tablet PO PRN (23:15)
[2019-07-23] MEDS ORDERED: mag hydrox/Alum hydrox/simeth 30ml oral suspension PO PRN (23:15)
[2019-07-23] MEDS ORDERED: HYDROcodone/acetaminophen 5mg/325mg tablet PO PRN (23:15)
[2019-07-23] MEDS ORDERED: magnesium 2GM in 50ml NS 50 ML IV PRN (23:15)
[2019-07-23] MEDS ORDERED: magnesium 4gm in 100ml NS 100 ML IV PRN (23:15)
[2019-07-23] MEDS ORDERED: ondansetron/PF 4mg/2ml inj IV PRN (23:15)
[2019-07-23] MEDS ORDERED: potassium Cl 20 mEq SR tablet PO PRN ×2 (23:15)
[2019-07-23] MEDS ORDERED: ipratropium/albuterol 3ml nebule NEB PRN (23:15)
[2019-07-23] MEDS ORDERED: potassium CL 10mEq/100ml bag 100 ML IV PRN ×2 (23:15)
[2019-07-23] MEDS: methylPREDNISolone sod succ 125mg/2ml vial IV SCH (23:40)
[2019-07-23] MEDS: piperacillin/tazo 3.375gm/50ml 50 ML IV SCH (23:41)
[2019-07-23] MEDS: normal saline 1000ml 1,000 ML IV SCH (23:41)
[2019-07-23 23:51] LABS: ABG BASE EXCESS 0.1 mmol/L (-2.0-3.0); ABG HCO3 24.1 mmol/L (22.0-26.0); ABG OXYGEN SATURATION 96.2 % (95-98); ABG PCO2 (T) 36.3 mmHg (35.0-45.0); ABG PH (T) 7.438 (7.350-7.450); ABG PO2 (T) 78.5 mmHg (83-108); ALLEN'S TEST Positive; FCOHb 0.5 % (0.5-1.5); FLOW 2 L/min; FMetHb 0.2 % (0.3-1.12); FO2Hb 95.5 % (94-100); PATIENT TEMPERATURE 36.9; RESPIRATORY RATE (OBSERVED) 16 b/min; TOTAL HEMOGLOBIN 11.7 G/dl (14.0-17.9)
--- NOTE | 2019-07-24 00:45 | NUR ---
received report from charge nurse, Arelis (who received report from Giovanny in ER); pt arrived via gurney with belongings; family at bedside; oriented to surroundings, bed control & use of call light
[2019-07-24 01:00] VITALS: BP_SYST 118; BP_SYST 140; BP_SYST 148; BP_DIAS 66; BP_DIAS 71; BP_DIAS 74
--- NOTE | 2019-07-24 02:45 | NUR ---
Dr Saha here on unit; informed of orthostatic VS's & pt not taking norco for pain; states he's on routine meds & takes tramadol QID & not as ordered, Qhs; orders received...
[2019-07-24] MEDS ORDERED: traMADol 50MG tablet PO SCH ×3 (03:25→21:00)
[2019-07-24] MEDS: traMADol 50MG tablet PO SCH ×4 (03:41→21:25)
[2019-07-24 05:15] LABS: BASOPHILS % (AUTO) 0 % (0-1); EOSINOPHILS % (AUTO) 0 % (0-6); HEMATOCRIT 35.3 % (42.0-52.0); HEMOGLOBIN 11.8 g/dl (14.0-17.9); LYMPHOCYTES # (AUTO) 0.4 X10'3 (1.1-4.8); LYMPHOCYTES % (AUTO) 2.9 % (21-51); MEAN CORPUSCULAR HEMOGLOBIN 27.8 PG (27.0-31.0); MEAN CORPUSCULAR HGB CONC 33.3 g/dL (33.0-36.5); MEAN CORPUSCULAR VOLUME 83.5 FL (78-98); MEAN PLATELET VOLUME 8.3 FL (7.4-10.4); MONOCYTES # (AUTO) 0.5 X10'3 (0-0.9); MONOCYTES % (AUTO) 3.6 % (2-12); NEUTROPHILS # (AUTO) 12.6 X10'3 (1.8-7.7); NEUTROPHILS % (AUTO) 93.5 % (42-75); PLATELET COUNT 422 X10'3 (140-440); RED BLOOD COUNT 4.23 X10'6 (4.70-6.10); RED CELL DISTRIBUTION WIDTH 14.8 % (11.5-14.5); WHITE BLOOD COUNT 13.5 X10'3 (4.5-11.0)
[2019-07-24 05:23] LABS: ALANINE AMINOTRANSFERASE 26 U/L (12-78); ALBUMIN 2.6 G/DL (3.4-5.0); ALBUMIN/GLOBULIN RATIO 0.7 (1.1-1.5); ALKALINE PHOSPHATASE 153 IU/L (46-116); ANION GAP 6 (8-16); ASPARTATE AMINO TRANSFERASE 22 U/L (10-37); BILIRUBIN,TOTAL 0.3 MG/DL (0.1-1.0); BLOOD UREA NITROGEN 9 MG/DL (7-18); BUN/CREATININE RATIO 9.9 (5.4-32.0); CALCIUM 8.3 MG/DL (8.5-10.1); CHLORIDE 101 MMOL/L (99-107); CREATININE 0.91 MG/DL (0.60-1.10); GLUCOSE 213 MG/DL (70-104); MAGNESIUM 1.7 MG/DL (1.5-2.4); POTASSIUM 3.7 MMOL/L (3.5-5.1); SODIUM 136 MMOL/L (135-145); TOTAL PROTEIN 6.6 G/DL (6.4-8.2); eGFR 81 ML/MIN
[2019-07-24 07:00] VITALS: BP 119/67
--- NOTE | 2019-07-24 07:17 | NUR ---
Patient in room [facility]. I have received report from EDGARD PARSONS and had the opportunity to ask questions and assume patient care.
[2019-07-24] MEDS: K and/or MAG REPLACEMENT MC SCH ×2 (08:00→20:00)
[2019-07-24] MEDS: methylPREDNISolone sod succ 125mg/2ml vial IV SCH ×2 (08:49→16:54)
[2019-07-24] MEDS: enoxaparin 40mg/0.4ml syringe SQ SCH (08:49)
[2019-07-24] MEDS: normal saline 1000ml 1,000 ML IV SCH ×2 (10:12→19:00)
[2019-07-24] MEDS: piperacillin/tazo 3.375gm/50ml 50 ML IV SCH ×2 (10:15→16:55)
--- NOTE | 2019-07-24 16:21 | NUR ---
Initial: Pt admitted for sepsis and acute respiratory failure. Pt BMI is low, current documented scaled wt 55.1kg, in November last year pt documented scaled wt 56.8kg. Pt currently on a regular diet with no documented PO intake.Patient was seen at bedside by TAD, patient endorses a good appetite and reports that he ate all of his lunch except for a side dish, he is looking forward to dinner. Reports no chewing difficulties, weight is stable, and had no questions or concerns. Provided with written high protein education handout with verbal review. Will continue to follow. Recommend: 1. continue regular diet 2. encourage protein intake 3. wt per rx Addendum: 07/24/19 at [address] Amended: Links added.
[2019-07-24 16:30] VITALS: BP_SYST 138; BP_SYST 139; BP_SYST 143; BP_DIAS 72; BP_DIAS 79
--- NOTE | 2019-07-24 18:52 | NUR ---
Problems reprioritized. Patient report given, questions answered & plan of care reviewed with EDGARD MONIQUE.
[2019-07-24 20:00] VITALS: BP_SYST 158; BP_SYST 169; BP_DIAS 56; BP_DIAS 83; BP_DIAS 87
--- NOTE | 2019-07-24 20:20 | NUR ---
Patient ambulated with assist x1 using gait belt and FWW without his oxygen on. Patient did first lap and oxygen check was 93%. Patient did a total of 3 laps around nursing station. O2 check afterwards 92%, states he feels fine. He doesn't want to wear the oxygen. Patient currently on Room air. Will continue with care. Addendum: 07/25/19 at 0256 by Charley Dc RN Wrong patient.
[2019-07-24] MEDS: tamsulosin 0.4mg capsule PO SCH (21:00)
--- NOTE | 2019-07-24 21:00 | NUR ---
Patient refused Flomax that MD order for this evening. Patient stated he was having trouble urinating because there was a group of people in the room. But usually he pees fine. Patient states he does not have a problem urinating. Flomax not given tonight.
[2019-07-24] MEDS: lactobacillus rhamnosus 10,000 MMU CELLS/CAPSULE PO SCH (21:24)
[2019-07-24] MEDS: gabapentin 300mg capsule PO SCH (21:24)
[2019-07-25] VITALS: BP 134/69
[2019-07-25] MEDS: piperacillin/tazo 3.375gm/50ml 50 ML IV SCH ×3 (00:19→16:18)
[2019-07-25] MEDS: methylPREDNISolone sod succ 125mg/2ml vial IV SCH ×3 (00:19→16:18)
--- NOTE | 2019-07-25 03:30 | NUR ---
24hr tele discontinued. Patient has been in [facility].
[2019-07-25] MEDS: normal saline 1000ml 1,000 ML IV SCH ×2 (05:53→14:38)
[2019-07-25] MEDS: traMADol 50MG tablet PO SCH ×4 (06:28→21:40)
--- NOTE | 2019-07-25 06:31 | NUR ---
Patient in room [facility]. I have received report from EDGARD MONIQUE and had the opportunity to ask questions and assume patient care.
[2019-07-25 06:36] LABS: BASOPHILS % (AUTO) 0.1 % (0-1); EOSINOPHILS % (AUTO) 0 % (0-6); HEMATOCRIT 36.2 % (42.0-52.0); HEMOGLOBIN 11.9 g/dl (14.0-17.9); LYMPHOCYTES # (AUTO) 0.6 X10'3 (1.1-4.8); LYMPHOCYTES % (AUTO) 3.5 % (21-51); MEAN CORPUSCULAR HEMOGLOBIN 27.3 PG (27.0-31.0); MEAN CORPUSCULAR HGB CONC 32.7 g/dL (33.0-36.5); MEAN CORPUSCULAR VOLUME 83.6 FL (78-98); MEAN PLATELET VOLUME 8.2 FL (7.4-10.4); MONOCYTES % (AUTO) 5.3 % (2-12); NEUTROPHILS # (AUTO) 16.6 X10'3 (1.8-7.7); NEUTROPHILS % (AUTO) 91.1 % (42-75); PLATELET COUNT 497 X10'3 (140-440); RED BLOOD COUNT 4.33 X10'6 (4.70-6.10); RED CELL DISTRIBUTION WIDTH 15.1 % (11.5-14.5); WHITE BLOOD COUNT 18.2 X10'3 (4.5-11.0)
--- NOTE | 2019-07-25 06:42 | NUR ---
Problems reprioritized. Patient report given, questions answered & plan of care reviewed with Sherry RENE.
[2019-07-25 06:50] LABS: ALANINE AMINOTRANSFERASE 35 U/L (12-78); ALBUMIN 2.7 G/DL (3.4-5.0); ALBUMIN/GLOBULIN RATIO 0.7 (1.1-1.5); ALKALINE PHOSPHATASE 145 IU/L (46-116); ANION GAP 6 (8-16); ASPARTATE AMINO TRANSFERASE 36 U/L (10-37); BILIRUBIN,TOTAL 0.2 MG/DL (0.1-1.0); BLOOD UREA NITROGEN 7 MG/DL (7-18); BUN/CREATININE RATIO 9.6 (5.4-32.0); CALCIUM 8.5 MG/DL (8.5-10.1); CHLORIDE 104 MMOL/L (99-107); CREATININE 0.73 MG/DL (0.60-1.10); GLUCOSE 123 MG/DL (70-104); MAGNESIUM 1.8 MG/DL (1.5-2.4); POTASSIUM 3.7 MMOL/L (3.5-5.1); SODIUM 140 MMOL/L (135-145); TOTAL CARBON DIOXIDE 30.5 MMOL/L (24-32); TOTAL PROTEIN 6.6 G/DL (6.4-8.2); eGFR > 90 ML/MIN
[2019-07-25 07:00] VITALS: BP 162/63
[2019-07-25] MEDS: lactobacillus rhamnosus 10,000 MMU CELLS/CAPSULE PO SCH ×2 (07:37→21:40)
[2019-07-25] MEDS: enoxaparin 40mg/0.4ml syringe SQ SCH (07:38)
[2019-07-25] MEDS: K and/or MAG REPLACEMENT MC SCH ×2 (07:38→20:00)
[2019-07-25 11:00] VITALS: BP 155/86
--- NOTE | 2019-07-25 18:15 | NUR ---
Problems reprioritized. Patient report given, questions answered & plan of care reviewed with EDGARD MONIQUE.
[2019-07-25 20:00] VITALS: BP_SYST 153; BP_SYST 154; BP_SYST 166; BP_SYST 173; BP_DIAS 82; BP_DIAS 87; BP_DIAS 89; BP_DIAS 94
[2019-07-25] MEDS: tamsulosin 0.4mg capsule PO SCH (21:00)
[2019-07-25] MEDS: gabapentin 300mg capsule PO SCH (21:40)
[2019-07-25] MEDS ORDERED: aspirin/acetaminophen/caffeine tablet PO PRN (23:50)
[2019-07-26] VITALS: BP 140/78
[2019-07-26] MEDS: normal saline 1000ml 1,000 ML IV SCH ×2 (00:26→11:13)
[2019-07-26] MEDS: piperacillin/tazo 3.375gm/50ml 50 ML IV SCH ×2 (00:27→08:54)
[2019-07-26] MEDS: methylPREDNISolone sod succ 125mg/2ml vial IV SCH ×2 (00:27→08:49)
[2019-07-26] MEDS: traMADol 50MG tablet PO SCH ×2 (05:27→12:37)
[2019-07-26 06:33] LABS: EOSINOPHILS % (AUTO) 0 % (0-6); HEMATOCRIT 37.1 % (42.0-52.0); HEMOGLOBIN 12.4 g/dl (14.0-17.9); LYMPHOCYTES # (AUTO) 0.8 X10'3 (1.1-4.8); LYMPHOCYTES % (AUTO) 4.8 % (21-51); MONOCYTES # (AUTO) 0.8 X10'3 (0-0.9); RED BLOOD COUNT 4.52 X10'6 (4.70-6.10)
[2019-07-26 06:37] LABS: BASOPHILS % (AUTO) 0.2 % (0-1); MEAN CORPUSCULAR HEMOGLOBIN 27.4 PG (27.0-31.0); MEAN CORPUSCULAR HGB CONC 33.4 g/dL (33.0-36.5); MEAN CORPUSCULAR VOLUME 82.2 FL (78-98); NEUTROPHILS # (AUTO) 14.4 X10'3 (1.8-7.7); PLATELET COUNT 612 X10'3 (140-440); RED CELL DISTRIBUTION WIDTH 14.8 % (11.5-14.5); WHITE BLOOD COUNT 15.9 X10'3 (4.5-11.0)
--- NOTE | 2019-07-26 06:57 | NUR ---
Problems reprioritized. Patient report given, questions answered & plan of care reviewed with Gisela RENE.
[2019-07-26 07:04] LABS: ALANINE AMINOTRANSFERASE 47 U/L (12-78); ALBUMIN 2.7 G/DL (3.4-5.0); ALBUMIN/GLOBULIN RATIO 0.7 (1.1-1.5); ALKALINE PHOSPHATASE 124 IU/L (46-116); ANION GAP 4 (8-16); ASPARTATE AMINO TRANSFERASE 38 U/L (10-37); BILIRUBIN,TOTAL 0.2 MG/DL (0.1-1.0); BLOOD UREA NITROGEN 11 MG/DL (7-18); BUN/CREATININE RATIO 14.1 (5.4-32.0); CALCIUM 8.5 MG/DL (8.5-10.1); CHLORIDE 103 MMOL/L (99-107); CREATININE 0.78 MG/DL (0.60-1.10); GLUCOSE 102 MG/DL (70-104); MAGNESIUM 1.8 MG/DL (1.5-2.4); POTASSIUM 3.4 MMOL/L (3.5-5.1); SODIUM 140 MMOL/L (135-145); TOTAL CARBON DIOXIDE 33.4 MMOL/L (24-32); TOTAL PROTEIN 6.6 G/DL (6.4-8.2); eGFR > 90 ML/MIN
[2019-07-26 07:12] LABS: ANISOCYTOSIS 1+; MICROCYTOSIS 1+; PLATELET ESTIMATE INCREASED; TOTAL CELLS COUNTED 100
[2019-07-26 07:34] VITALS: BP 156/98
[2019-07-26] MEDS: K and/or MAG REPLACEMENT MC SCH (08:00)
[2019-07-26] MEDS: enoxaparin 40mg/0.4ml syringe SQ SCH (08:00)
[2019-07-26] MEDS: lactobacillus rhamnosus 10,000 MMU CELLS/CAPSULE PO SCH (08:48)
[2019-07-26] MEDS ORDERED: AMOX-419 PO (10:19)
[2019-07-26] MEDS ORDERED: LISI2.5T2 PO (10:19)
[2019-07-26 11:00] VITALS: BP_SYST 149; BP_SYST 153; BP_SYST 156; BP_DIAS 80; BP_DIAS 92; BP_DIAS 94
--- NOTE | 2019-07-26 13:04 | NUR ---
Patient discharged home with family member. stable and appropriate. all belongings taken from room. IV removed. New prescriptions transmitted to preferred pharmacy. Discharge instructions reviewed with patient and family member, all questions answered.
== END 2019-07-26 13:13 | disposition home or self-care (01) | DRG 871 ==
LOC: ER 17:40 → ED HOLD 23:13 → SUR 3N 07-24 00:45
PROVIDERS: ADMIT Family Medicine; ATTEND Internal Medicine
PROC: B32T1ZZ Computerized Tomography (CT Scan) of Left Pulmonary Artery using Low Osmolar Contrast (ICD-10-PCS; principal; 2019-07-23)
PROC: B32S1ZZ Computerized Tomography (CT Scan) of Right Pulmonary Artery using Low Osmolar Contrast (ICD-10-PCS; 2019-07-23)
DX: A41.9 Sepsis, unspecified organism (principal); J18.9 Pneumonia, unspecified organism; J96.00 Acute respiratory failure, unspecified whether with hypoxia or hypercapnia; J44.1 Chronic obstructive pulmonary disease with (acute) exacerbation; E87.1 Hypo-osmolality and hyponatremia; J44.0 Chronic obstructive pulmonary disease with (acute) lower respiratory infection; K44.9 Diaphragmatic hernia without obstruction or gangrene; I10 Essential (primary) hypertension; G89.29 Other chronic pain; I25.2 Old myocardial infarction; Z86.73 Personal history of transient ischemic attack (TIA), and cerebral infarction without residual deficits; Z87.891 Personal history of nicotine dependence; Z82.3 Family history of stroke; Z95.1 Presence of aortocoronary bypass graft; Z99.81 Dependence on supplemental oxygen
CPT/HCPCS: 36415; 36600; 71046; 71260; 80053; 81001; 82803; 83605; 83735; 84145; 84153; 85018; 85025; 87040; 87070; 87077; 87081; 87186; 87502; 87503; 92508; 92616; 94640; 94760; 96365; 97110; 97116; 97161; 97530; 99285; G0378; J0696; J1650; J2543; J2930; J7030; Q9967

== ENCOUNTER 2020-01-04 15:10 | Emergency (ER) | payer MEDICARE, MEDICAID ==
[~2020-01-04] VITALS: Ht 180.3 cm; Wt 59.1 kg
[~2020-01-04 15:10] MED LIST changes: -ALBU8.5H8 IH; +GABA-532 PO; +LISI2.5T2 PO
[2020-01-04 16:45] LABS: BASOPHILS % (AUTO) 0.5 % (0-1); EOSINOPHILS # (AUTO) 0.1 X10'3 (0-0.9); EOSINOPHILS % (AUTO) 0.9 % (0-6); HEMATOCRIT 38.7 % (42.0-52.0); HEMOGLOBIN 12.9 g/dl (14.0-17.9); LYMPHOCYTES # (AUTO) 1.6 X10'3 (1.1-4.8); LYMPHOCYTES % (AUTO) 16.2 % (21-51); MEAN CORPUSCULAR HEMOGLOBIN 27.6 PG (27.0-31.0); MEAN CORPUSCULAR HGB CONC 33.3 g/dL (33.0-36.5); MEAN CORPUSCULAR VOLUME 82.8 FL (78-98); MEAN PLATELET VOLUME 8.6 FL (7.4-10.4); MONOCYTES # (AUTO) 1.5 X10'3 (0-0.9); MONOCYTES % (AUTO) 15.5 % (2-12); NEUTROPHILS # (AUTO) 6.5 X10'3 (1.8-7.7); NEUTROPHILS % (AUTO) 66.9 % (42-75); PLATELET COUNT 318 X10'3 (140-440); RED BLOOD COUNT 4.67 X10'6 (4.70-6.10); RED CELL DISTRIBUTION WIDTH 14.6 % (11.5-14.5); WHITE BLOOD COUNT 9.7 X10'3 (4.5-11.0)
[2020-01-04 16:53] VITALS: BP 165/86
--- NOTE | 2020-01-04 16:53 | NUR ---
Patient resting comfortably in bed with family at bedside. Patient updated on POC.
[2020-01-04 16:54] LABS: D-DIMER 0.88 MG/L FEU (0-0.50); PARTIAL THROMBOPLASTIN TIME 33 SECONDS (22-32)
[2020-01-04 16:55] LABS: ALANINE AMINOTRANSFERASE 15 U/L (12-78); ALBUMIN 3.2 G/DL (3.4-5.0); ALBUMIN/GLOBULIN RATIO 0.9 (1.1-1.5); ALKALINE PHOSPHATASE 83 IU/L (46-116); ANION GAP 3 (8-16); ASPARTATE AMINO TRANSFERASE 22 U/L (10-37); BILIRUBIN,TOTAL 0.3 MG/DL (0.1-1.0); BLOOD UREA NITROGEN 11 MG/DL (7-18); BUN/CREATININE RATIO 12.4 (5.4-32.0); CALCIUM 8.5 MG/DL (8.5-10.1); CHLORIDE 100 MMOL/L (99-107); CREATININE 0.89 MG/DL (0.60-1.10); GLUCOSE 94 MG/DL (70-104); POTASSIUM 3.2 MMOL/L (3.5-5.1); SODIUM 136 MMOL/L (135-145); TOTAL CARBON DIOXIDE 32.7 MMOL/L (24-32); TOTAL PROTEIN 6.9 G/DL (6.4-8.2); eGFR 83 ML/MIN
[2020-01-04 17:01] LABS: TOTAL CELLS COUNTED 100
[2020-01-04 17:02] LABS: MAGNESIUM 1.8 MG/DL (1.5-2.4); PHOSPHORUS 2.5 MG/DL (2.3-4.5)
[2020-01-04 17:04] LABS: PLATELET ESTIMATE NORMAL
[2020-01-04 17:05] LABS: LARGE PLATELETS FEW; STOMATOCYTES 1+
== END 2020-01-04 18:05 | disposition home or self-care (01) ==
LOC: ER 15:11
DX: M25.462 Effusion, left knee (principal); M25.562 Pain in left knee; M79.89 Other specified soft tissue disorders; I10 Essential (primary) hypertension; I25.2 Old myocardial infarction; J44.9 Chronic obstructive pulmonary disease, unspecified; G89.29 Other chronic pain; F17.200 Nicotine dependence, unspecified, uncomplicated; Z79.899 Other long term (current) drug therapy
CPT/HCPCS: 73564; 80053; 83735; 83880; 84100; 85025; 85379; 85610; 85730; 93971; 99284

== ENCOUNTER 2020-08-09 13:39 | Emergency (ER) | payer MEDICARE, MEDICAID ==
[~2020-08-09] VITALS: Ht 177.8 cm; Wt 52.3 kg
[2020-08-09] MEDS ORDERED: aspirin 81mg tab.chew PO ONE (13:45)
[2020-08-09] MEDS ORDERED: nitroGLYCERIN 0.4mg SUBLingual tab SL PRN (13:45)
[2020-08-09 14:59] LABS: BASOPHILS # (AUTO) 0.1 X10'3 (0-0.2); BASOPHILS % (AUTO) 0.8 % (0-1); EOSINOPHILS # (AUTO) 0.3 X10'3 (0-0.9); EOSINOPHILS % (AUTO) 3.6 % (0-6); HEMATOCRIT 41.8 % (42.0-52.0); HEMOGLOBIN 13.5 g/dl (14.0-17.9); LYMPHOCYTES # (AUTO) 2.1 X10'3 (1.1-4.8); LYMPHOCYTES % (AUTO) 25.7 % (21-51); MEAN CORPUSCULAR HEMOGLOBIN 26.5 PG (27.0-31.0); MEAN CORPUSCULAR HGB CONC 32.3 g/dL (33.0-36.5); MEAN CORPUSCULAR VOLUME 82.1 FL (78-98); MONOCYTES # (AUTO) 0.8 X10'3 (0-0.9); NEUTROPHILS # (AUTO) 4.8 X10'3 (1.8-7.7); NEUTROPHILS % (AUTO) 59.9 % (42-75); PLATELET COUNT 348 X10'3 (140-440); RED BLOOD COUNT 5.09 X10'6 (4.70-6.10); RED CELL DISTRIBUTION WIDTH 15.2 % (11.5-14.5); WHITE BLOOD COUNT 8.1 X10'3 (4.5-11.0)
[2020-08-09 15:12] LABS: ALANINE AMINOTRANSFERASE 16 U/L (12-78); ALBUMIN 3.6 G/DL (3.4-5.0); ALKALINE PHOSPHATASE 74 IU/L (46-116); ANION GAP 8 (8-16); ASPARTATE AMINO TRANSFERASE 26 U/L (10-37); BILIRUBIN,TOTAL 0.5 MG/DL (0.1-1.0); BLOOD UREA NITROGEN 8 MG/DL (7-18); BUN/CREATININE RATIO 8.6 (5.4-32.0); CALCIUM 8.7 MG/DL (8.5-10.1); CHLORIDE 99 MMOL/L (99-107); CREATININE 0.93 MG/DL (0.60-1.10); GLUCOSE 86 MG/DL (70-104); POTASSIUM 3.5 MMOL/L (3.5-5.1); SODIUM 136 MMOL/L (135-145); TOTAL CARBON DIOXIDE 28.6 MMOL/L (24-32); TOTAL PROTEIN 7.3 G/DL (6.4-8.2); eGFR 79 ML/MIN
[2020-08-09 15:19] LABS: MAGNESIUM 1.8 MG/DL (1.5-2.4)
--- NOTE | 2020-08-09 15:27 | NUR ---
Arianna clinton in EDM - 08/09/20 at [email or web address] Chicas at bedside to discuss the risks and benefits to the patients daughter for interventional radiology.
[2020-08-09 15:39] LABS: D-DIMER 0.66 MG/L FEU (0-0.50)
--- NOTE | 2020-08-09 16:19 | NUR ---
Pt updated with plan of care and is awaiting the 3 hour trop results.
[2020-08-09] MEDS ORDERED: HYDROcodone/acetaminophen 5mg/325mg tablet PO ONE (16:25)
--- NOTE | 2020-08-09 17:29 | NUR ---
3 hour troponin drawn and sent to lab. Pt updated with plan of care.
[2020-08-09 17:51] VITALS: BP 146/99
== END 2020-08-09 18:12 | disposition home or self-care (01) ==
LOC: ER 13:40
DX: R07.89 Other chest pain (principal); I21.9 Acute myocardial infarction, unspecified; R19.7 Diarrhea, unspecified; I10 Essential (primary) hypertension; J44.9 Chronic obstructive pulmonary disease, unspecified; Z95.1 Presence of aortocoronary bypass graft
CPT/HCPCS: 36415; 71045; 80053; 83735; 83880; 84484; 85025; 85379; 93005; 99285

== ENCOUNTER 2022-01-16 06:23 | Day surgery (SDC) | payer MEDICARE, MEDICAID ==
[2022-01-16] VITALS (9 sets, daily range): BP systolic 111–165; BP diastolic 57–80
[~2022-01-16] VITALS: Ht 180.3 cm; Wt 46.4 kg
[~2022-01-16 06:23] MED LIST changes: +ALBU18HF2; +FLUT1AER; -LISI2.5T2 PO; +TRAZ-251 PO
[2022-01-16] MEDS ORDERED: TRAZ-251 PO (07:05)
[2022-01-16] MEDS ORDERED: TIZA4TAB11 PO (07:05)
[2022-01-16] MEDS ORDERED: diphenhydrAMINE 25mg capsule PO PRN (07:05)
[2022-01-16] MEDS ORDERED: normal saline 1,000 ML IV SCH (07:05)
[2022-01-16] MEDS ORDERED: ESOM20CA PO (07:10)
[2022-01-16] MEDS ORDERED: MULT-1172 (07:10)
[2022-01-16] MEDS ORDERED: [UNRECOGNIZED DRUG - OTHER] (07:10)
[2022-01-16] MEDS ORDERED: ATOR40TA PO (07:10)
[2022-01-16 08:22] LABS: ALBUMIN 3.3 G/DL (3.4-5.0); ANION GAP 9 (8-16); BLOOD UREA NITROGEN 11 MG/DL (7-18); BUN/CREATININE RATIO 12.9 (5.4-32.0); CALCIUM 9.1 MG/DL (8.5-10.1); CHLORIDE 103 MMOL/L (99-107); CREATININE 0.85 MG/DL (0.60-1.10); GLUCOSE 86 MG/DL (70-104); MAGNESIUM 1.7 MG/DL (1.5-2.4); POTASSIUM 4.2 MMOL/L (3.5-5.1); SODIUM 138 MMOL/L (135-145); TOTAL CARBON DIOXIDE 26.1 MMOL/L (24-32); eGFR 87 ML/MIN
[2022-01-16 08:26] LABS: BASOPHILS % (AUTO) 0.4 % (0-1); EOSINOPHILS # (AUTO) 0.2 X10'3 (0-0.9); EOSINOPHILS % (AUTO) 2.1 % (0-6); HEMATOCRIT 38.8 % (42.0-52.0); HEMOGLOBIN 12.6 g/dl (14.0-17.9); LYMPHOCYTES # (AUTO) 1.3 X10'3 (1.1-4.8); LYMPHOCYTES % (AUTO) 14.7 % (21-51); MEAN CORPUSCULAR HEMOGLOBIN 25.8 PG (27.0-31.0); MEAN CORPUSCULAR HGB CONC 32.4 g/dL (33.0-36.5); MEAN CORPUSCULAR VOLUME 79.6 FL (78-98); MEAN PLATELET VOLUME 8.4 FL (7.4-10.4); MONOCYTES # (AUTO) 0.8 X10'3 (0-0.9); NEUTROPHILS # (AUTO) 6.4 X10'3 (1.8-7.7); NEUTROPHILS % (AUTO) 73.8 % (42-75); PLATELET COUNT 337 X10'3 (140-440); RED BLOOD COUNT 4.88 X10'6 (4.70-6.10); WHITE BLOOD COUNT 8.7 X10'3 (4.5-11.0)
[2022-01-16] MEDS ORDERED: verapamil 2.5 mg/ml inj IV ONE (09:03)
[2022-01-16] MEDS ORDERED: midazolam 1 mg/ML 2ml injection ONE ×3 (09:03→09:39)
[2022-01-16] MEDS ORDERED: heparin 1,000unit/ml 10ml vial 10 ML ONE (09:03)
[2022-01-16] MEDS ORDERED: IOHEXOL 350 MG/ML INFUS..BTL 125ML IV ONE ×2 (09:03→11:00)
[2022-01-16] MEDS ORDERED: fentaNYL/PF 50MCG/1 ML 2ML syringe ONE ×2 (09:03→09:39)
[2022-01-16] MEDS ORDERED: LIDOcaine 1% 30ml preserv. free vial ONE (09:03)
[2022-01-16] MEDS ORDERED: nitroGLYCERIN-Tridil 50MG/D5W 250 ML IV ONE (09:03)
--- NOTE | 2022-01-16 09:18 | NUR ---
Pt left the floor for procedure.
[2022-01-16] MEDS ORDERED: clopidogrel 300mg tablet ONE (11:09)
[2022-01-16] MEDS ORDERED: aspirin 325mg tablet ONE (11:10)
[2022-01-16] MEDS ORDERED: ondansetron/PF 4mg/2ml inj IV PRN (11:50)
[2022-01-16] MEDS ORDERED: HYDROcodone/acetaminophen 5mg/325mg tablet PO PRN (11:50)
[2022-01-16] MEDS ORDERED: proCHLORperazine 10 MG/2 ml inj IV PRN (11:50)
[2022-01-16] MEDS ORDERED: normal saline 1,000 ML IV ONE (11:50)
[2022-01-16] MEDS ORDERED: HYDROcodone/acetaminophen 10/325mg tab PO PRN (11:50)
--- NOTE | 2022-01-16 15:45 | NUR ---
Pt's son was transportation. Son states he will pick up driver mediation "on the way home". Pt and son verbalized the understanding of starting Plavix tomorrow. Pt states he will "take it daily". Pt was educated to call Dr. Bonilla's office if there is any problems with obtaining the new prescription. Pt's son showed me the text message on his phone stating the medication was ready and available to pick up driver.
== END 2022-01-16 15:30 | disposition home or self-care (01) ==
LOC: SSTAY O 06:23
PROVIDERS: ATTEND Internal Medicine Cardiovascular Disease
DX: R07.89 Other chest pain (principal); I25.10 Atherosclerotic heart disease of native coronary artery without angina pectoris; J44.9 Chronic obstructive pulmonary disease, unspecified; I47.2 Ventricular tachycardia; Z87.891 Personal history of nicotine dependence; Z79.899 Other long term (current) drug therapy; Z79.01 Long term (current) use of anticoagulants
CPT/HCPCS: 36415; 80048; 83735; 85025; 85610; 92978; 93005; 93460; 93571; 93572; 99152; 99153; C1725; C1751; C1753; C1769; C1874; C1894; C9600; J1644; J2250; J3010; J3490; J7030; Q9967; A4615; A4620; A5120; A6258; A6402

== ENCOUNTER 2022-05-08 09:28 | Outpatient (CLI) | payer MEDICARE, MEDICAID ==
[~2022-05-08 09:28] MED LIST changes: +ATOR40TA PO; +ESOM20CA PO; +MULT-1172; +TIZA4TAB11 PO; +[UNRECOGNIZED DRUG - OTHER]
== END 2022-05-08 23:59 | disposition home or self-care (01) ==
LOC: 64 CT 09:28
PROVIDERS: ATTEND Internal Medicine Cardiovascular Disease
DX: K57.30 Diverticulosis of large intestine without perforation or abscess without bleeding (principal); I70.0 Atherosclerosis of aorta; J43.2 Centrilobular emphysema; J98.4 Other disorders of lung; R91.8 Other nonspecific abnormal finding of lung field; K44.9 Diaphragmatic hernia without obstruction or gangrene; K86.89 Other specified diseases of pancreas; R63.4 Abnormal weight loss; K62.5 Hemorrhage of anus and rectum; R04.2 Hemoptysis; M47.814 Spondylosis without myelopathy or radiculopathy, thoracic region; M47.817 Spondylosis without myelopathy or radiculopathy, lumbosacral region; M41.84 Other forms of scoliosis, thoracic region; Z90.49 Acquired absence of other specified parts of digestive tract
CPT/HCPCS: 71250; 74176

== ENCOUNTER 2024-10-19 09:09 | Emergency (ER) | payer MEDICARE, MEDICAID ==
[~2024-10-19] VITALS: Ht 180.3 cm; Wt 50.0 kg
[~2024-10-19 09:09] MED LIST changes: -CARI-433 PO; +CARI-515 PO
[2024-10-19] MEDS: normal saline 1000ML IV soln IVB ONE (09:53)
[2024-10-19] MEDS: nitroGLYCERIN 0.4mg SUBLingual tab SL PRN (09:55)
[2024-10-19 10:32] LABS: BASOPHILS # (AUTO) 0.1 X10'3 (0-0.2); BASOPHILS % (AUTO) 0.2 % (0-1); EOSINOPHILS % (AUTO) 0 % (0-6); HEMOGLOBIN 13.4 g/dl (14.0-17.9); LYMPHOCYTES # (AUTO) 0.8 X10'3 (1.1-4.8); LYMPHOCYTES % (AUTO) 3.1 % (21-51); MEAN CORPUSCULAR HEMOGLOBIN 26.6 PG (27.0-31.0); MEAN CORPUSCULAR HGB CONC 32.6 g/dL (33.0-36.5); MEAN CORPUSCULAR VOLUME 81.6 FL (78-98); MEAN PLATELET VOLUME 8.5 FL (7.4-10.4); MONOCYTES # (AUTO) 1.2 X10'3 (0-0.9); MONOCYTES % (AUTO) 4.9 % (2-12); NEUTROPHILS # (AUTO) 23.3 X10'3 (1.8-7.7); NEUTROPHILS % (AUTO) 91.8 % (42-75); PLATELET COUNT 420 X10'3 (140-440); RED BLOOD COUNT 5.02 X10'6 (4.70-6.10); RED CELL DISTRIBUTION WIDTH 15.5 % (11.5-14.5)
[2024-10-19 10:43] LABS: ALANINE AMINOTRANSFERASE 20 U/L (12-78); ALBUMIN 3.5 G/DL (3.4-5.0); ALBUMIN/GLOBULIN RATIO 0.8 (1.1-1.5); ALKALINE PHOSPHATASE 93 IU/L (46-116); ANION GAP 9 (8-16); ASPARTATE AMINO TRANSFERASE 21 U/L (10-37); BILIRUBIN,TOTAL 0.7 MG/DL (0.1-1.0); BLOOD UREA NITROGEN 16 MG/DL (7-18); CALCIUM 9.1 MG/DL (8.5-10.1); CHLORIDE 102 MMOL/L (99-107); CREATININE 1.14 MG/DL (0.60-1.10); GLUCOSE 235 MG/DL (70-104); POTASSIUM 3.9 MMOL/L (3.5-5.1); SODIUM 142 MMOL/L (135-145); TOTAL CARBON DIOXIDE 30.8 MMOL/L (24-32); TOTAL PROTEIN 8.1 G/DL (6.4-8.2); eCRCL 36 ML/MIN; eGFR 62 ML/MIN
[2024-10-19 10:47] LABS: WHITE BLOOD COUNT 25.4 X10'3 (4.5-11.0)
[2024-10-19 10:51] LABS: PRO BRAIN NATRIURETIC PEPTIDE 755 PG/ML (0-450)
[2024-10-19 10:54] VITALS: TEMP 99.7
[2024-10-19 11:02] LABS: ANISOCYTOSIS 1+; MICROCYTOSIS 1+; PLATELET ESTIMATE NORMAL; TOTAL CELLS COUNTED 100
[2024-10-19 12:10] VITALS: BP 126/85; PULSE 74; RESP 20; O2SAT 96
== END 2024-10-19 12:12 | disposition home or self-care (01) ==
LOC: ER 09:10
DX: T18.108A Unspecified foreign body in esophagus causing other injury, initial encounter (principal); D72.829 Elevated white blood cell count, unspecified; M19.90 Unspecified osteoarthritis, unspecified site; I10 Essential (primary) hypertension; J44.9 Chronic obstructive pulmonary disease, unspecified; W44.9XXA Unspecified foreign body entering into or through a natural orifice, initial encounter; Y93.89 Activity, other specified; Y92.89 Other specified places as the place of occurrence of the external cause; Y99.8 Other external cause status
CPT/HCPCS: 36415; 71045; 80053; 83880; 84145; 84484; 85007; 85025; 93005; 96360; 96361; 99285; A4615; J7030